=== PATIENT | female | born 1990 | race Two or more races ===

== ENCOUNTER 2023-06-12 06:50 | Emergency (ER) | payer OTHER ==
[~2023-06-12] VITALS: Ht 154.9 cm; Wt 52.2 kg
[2023-06-12] MEDS ORDERED: FOLIC ACID1 MG (06:52)
[2023-06-12] MEDS ORDERED: LEVOTHYROXINE25 MCG (06:52)
[2023-06-12] MEDS ORDERED: PRENATAL + DHA1 EAC1 (06:52)
[2023-06-12 08:07] LABS: HEMATOCRIT 41.1 % (36.0-45.00); HEMOGLOBIN 13.5 g/dL (12.0-15.00); MEAN CELL VOLUME 89.4 fL (80.00-100.00); MEAN CORPUSCULAR HEMOGLOBIN 29.4 pg (27.00-32.0); MEAN CORPUSCULAR HGB CONC 32.9 g/dl (32.0-36.0); PLATELET COUNT 335 K/uL (150-450); RED CELL DISTRIBUTION WIDTH 14.2 % (11.5-14.5)
[2023-06-12 08:26] LABS: ANION GAP 9 (10.0-20.0); BLOOD UREA NITROGEN 12 mg/dL (7-18); BUN CREA RATIO 15 (7.0-25.0); CARBON DIOXIDE 27 mEq/L (21-32); CHLORIDE 110 mmol/L (98-107); GFR 82.11; GLUCOSE FASTING 95 mg/dL (65-100); OSMOLALITY SERUM 283 MOSM/KG (275-295); POTASSIUM 4.16 mEq/L (3.5-5.1); SODIUM 142 mmol/L (136-145)
[2023-06-12 08:44] LABS: HCG QUANTITATIVE < 1 mUI/mL (1-3)
== END 2023-06-12 09:45 | disposition home or self-care (01) ==
LOC: ER 06:50
DX: O20.9 Hemorrhage in early pregnancy, unspecified (principal); O34.81 Maternal care for other abnormalities of pelvic organs, first trimester; N83.201 Unspecified ovarian cyst, right side; Z3A.01 Less than 8 weeks gestation of pregnancy

== ENCOUNTER 2023-09-03 22:16 | Emergency (ER) | payer OTHER ==
[~2023-09-03] VITALS: Ht 154.9 cm; Wt 50.8 kg
[~2023-09-03 22:16] MED LIST: FOLIC ACID1 MG; LEVOTHYROXINE25 MCG; PRENATAL + DHA1 EAC1
[2023-09-04] MEDS ORDERED: ACETAMINOPHEN 500 MG GEL..CAP PO ONE (00:45)
[2023-09-04 01:36] LABS: PH,URINE 5.5 (5.0-8.0); URINE APPEARANCE Clear; URINE BILIRRUBIN Negative (NEGATIVE); URINE BLOOD Trace; URINE COLOR Yellow; URINE GLUCOSE Negative (NEGATIVE); URINE LEUKOCYTE Trace; URINE NITRATE Negative; URINE PROTEIN Negative (NEGATIVE)
[2023-09-04 01:40] LABS: URINE RBC 20.8 uL (0.0-20.8); URINE WBC 22.8 uL (0.0-23.2)
[2023-09-04] MEDS ORDERED: KETOROLAC TROMETHAMINE 60 MG VIAL IM ONE (02:30)
== END 2023-09-04 02:31 | disposition home or self-care (01) ==
LOC: ER 22:16
PROVIDERS: General Practice
DX: M54.9 Dorsalgia, unspecified (principal)